=== PATIENT | male | born 1960 | race Caucasian/White ===

== ENCOUNTER → 2017-10-17 | Outpatient (CLI) | payer OTHER | LOC: FIMAGING 10:33 | PROVIDERS: ATTEND Neurological Surgery | DX: M47.12 Other spondylosis with myelopathy, cervical region (principal); M48.02 Spinal stenosis, cervical region; M50.222 Other cervical disc displacement at C5-C6 level; M50.223 Other cervical disc displacement at C6-C7 level ==

== ENCOUNTER 2017-11-15 11:18 | Observation (INO) | payer OTHER ==
[2017-11-15] MEDS ORDERED: SURGIFLO MATRIX KIT WITH THROMBIN 8 ML TP ONE ×2 (11:39→14:29)
[2017-11-15] MEDS ORDERED: BUPIVACAINE 0.25% 30 ML SDV ONE (11:40)
[2017-11-15] MEDS ORDERED: BACITRACIN 50,000 UNITS/10 ML SYR IRR ONE (11:40)
[2017-11-15] MEDS ORDERED: THROMBIN (BOVINE) 5,000 UNIT VIAL TP ONE (11:40)
[2017-11-15] MEDS ORDERED: EPINEPHrine 1 MG/ML INJ ONE (11:40)
[2017-11-15] MEDS ORDERED: GABAPENTIN 300 MG CAP PO ONE (11:44)
[2017-11-15] MEDS ORDERED: ACETAMINOPHEN 500 MG TAB PO ONE (11:44)
[2017-11-15] MEDS ORDERED: ceFAZolin 2 GM/DEXTROSE 100 ML IV ONE (11:44)
[2017-11-15] MEDS ORDERED: LIDOCAINE 1% 2 ML INJ ID PRN (11:48)
[2017-11-15] MEDS ORDERED: LR 1,000 ML IV ONE (11:48)
[2017-11-15] MEDS ORDERED: MIDAZOLAM 2 MG/2 ML VIAL IVP ONE (12:12)
--- NOTE | 2017-11-15 12:14 | PDANEPAE ---
ANE History of Present Illness cervical radiculopathy for ACDF ANE Past Medical History - Cardiovascular History Hx Hypertension: No Hx Arrhythmias: No Hx Chest Pain: No Hx Coronary Artery / Peripheral Vascular Disease: No Hx CHF / Valvular Disease: No Hx Palpitations: No Cardiovascular History Comment: PREV A-FIB ONE TIME EPISODE 2003. RBBB - Pulmonary History Hx COPD: No Hx Asthma/Reactive Airway Disease: No Hx Recent Upper Respiratory Infection: No Hx Oxygen in Use at Home: No Hx Sleep Apnea: No Sleep Apnea Screening Result - Last Documented: Negative - Neurologic History Hx Cerebrovascular Accident: No Hx Seizures: No Hx Dementia: No - Endocrine History Hx Diabetes: No Hypothyroid: No Hyperthyroid: No Obesity: no - Renal History Hx Renal Disorders: No - Liver History Hx Hepatic Disorders: No - Neurological & Psychiatric Hx Hx Neurological and Psychiatric Disorders: Yes Neurological / Psychiatric History Comment: ANXIETY - Cancer History Hx Cancer: No - Congenital Disorder History Hx Congenital Disorders: No - GI History Hx Gastrointestinal Disorders: Yes Gastrointestinal History Comment: HX OF COLON POLYPS - Other Health History Other Health History: FULL DENTURES. CERVICAL MYELOPATHY. RT ARM/SCAPULA NUMBNESS FINGERS - Chronic Pain History Chronic Pain: Yes (CERVICAL MYELOPATHY) - Surgical History Prior Surgeries: VEENA CATARACT,CORNEAL TRANSPLANT. RETINAL DETACHMENT,GLAUCOMA. DENTAL IMPLANTS ANE Review of Systems Review of systems is: negative Review of Systems: - Exercise capacity METS (RN): 6 METS ANE Patient History - Allergies Allergies/Adverse Reactions: No Known Allergies Allergy (Verified 11/07/17 14:48) - Home Medications Home medications: home medication list seen and reviewed Home Medications: FLUoxetine [Prozac 20 MG (*)] 40 mg PO HS 10/26/15 [Last Taken Unknown] QUEtiapine FUMARATE [Seroquel 25 mg (*)] 25 mg PO HS 10/26/15 [Last Taken Unknown] Rosuvastatin Calcium [Crestor 10mg (RX)] 10 mg PO HS 10/26/15 [Last Taken Unknown] Polymyxin B Sulfate/Tmp [Polytrim Opht Drops (*)] 1 drops RTEYE BID 11/07/17 [ Last Taken Unknown] prednisoLONE ACET 1% [Pred Forte 1% (*)] 1 drops RTEYE DAILY 11/07/17 [Last Taken Unknown] - Smoking Hx Smoking Status: Never smoked - Family Anes Hx Family Hx Anesthesia Complications: NEG ANE Labs/Vital Signs - Vital Signs Height: 185.42 cm Weight: 83.915 kg ANE Physical Exam - Airway Neck exam: FROM Mallampati Score: Class 1 Mouth exam: dentures - Pulmonary Pulmonary: no respiratory distress - Cardiovascular Cardiovascular: regular rate and rhythym - ASA Status ASA Status: II ANE Anesthesia Plan Anesthesia Plan: general endotracheal anesthesia Lines/Monitors: additional IV Specialized Airway: video laryngoscope
[2017-11-15] MEDS ORDERED: fentaNYL 100 MCG/2 ML INJ ONE (12:17)
[2017-11-15] MEDS ORDERED: PROPOFOL/EMULSION 500 MG/50 ML BOTTLE IV ONE ×2 (12:17→14:06)
[2017-11-15] MEDS ORDERED: LIDOCAINE 2% 2 ML INJ ONE (12:26)
[2017-11-15] MEDS ORDERED: SUCCINYLCHOLINE CHLORIDE 200 MG/10 ML SYR IVP ONE (12:26)
[2017-11-15] MEDS ORDERED: ROCURONIUM 50 MG/5 ML VIAL ONE (12:27)
--- NOTE | 2017-11-15 12:33 | PDHPUP ---
History & Physical Update H&P update statement: This history and physical update is based on an assessment of the patient which was completed after admission or registration (within 24 hours), but prior to the surgery/procedure. H&P update: H&P reviewed & patient examined, no change in patient's condition since H&P completed
[2017-11-15] MEDS ORDERED: DEXAMETHASONE 4 MG/ML VIAL ONE ×2 (12:46)
[2017-11-15] MEDS ORDERED: PHENYLEPHRINE HCL 100 MCG/ML SYR ONE (13:22)
--- NOTE | 2017-11-15 14:16 | POSTANESTH ---
Post Anesthetic Evaluation Cardiovascular Status: Normal, Stable Respiratory Status: Normal, Stable Level of Consciousness/Mental Status: Can Participate in Eval, Alert and Oriented Pain Control: Adequate, Prn Tx Ordered Nausea/Vomiting Control: Adequate, Prn Tx Ordered Complications Possibly Related to Anesthesia: None Noted
[2017-11-15] MEDS ORDERED: METOCLOPRAMIDE 10 MG/2 ML VIAL IVP PRN (15:38)
[2017-11-15] MEDS ORDERED: HYDROmorphONE/DILAUDID 2 MG/ML INJ IVP PRN (15:38)
[2017-11-15] MEDS ORDERED: ALBUTEROL 3 ML DEYVIAL IH PRN (15:38)
[2017-11-15] MEDS ORDERED: PROMETHAZINE HCL 25 MG/ML INJ IVP PRN (15:38)
[2017-11-15] MEDS ORDERED: ONDANSETRON 4 MG/2 ML VIAL IVP PRN ×2 (15:38→16:01)
[2017-11-15] MEDS ORDERED: fentaNYL 100 MCG/2 ML INJ IVP PRN (15:38)
[2017-11-15] MEDS ORDERED: NALOXONE HCL 0.4 MG/ML INJ IVP PRN (15:38)
[2017-11-15] MEDS ORDERED: ACETAMINOPHEN 500 MG TAB PO PRN (15:38)
[2017-11-15] MEDS ORDERED: LABETALOL HCL 5 MG/ML 20 ML MDV IVP PRN (15:38)
[2017-11-15] MEDS ORDERED: LR 500 ML IV PRN (15:38)
[2017-11-15] MEDS ORDERED: DIAZEPAM 5 MG/ML 1 ML SYR IVP PRN (15:38)
[2017-11-15] MEDS ORDERED: oxyCODONE IR 5 MG TAB PO PRN ×2 (15:38→16:01)
[2017-11-15] MEDS ORDERED: MEPERIDINE 25 MG/0.5 ML AMP IVP PRN (15:38)
[2017-11-15] MEDS ORDERED: PHENYLEPHRINE HCL 100 MCG/ML SYR IVP PRN (15:38)
[2017-11-15] MEDS ORDERED: BISACODYL 10 MG SUPP PR PRN (16:01)
[2017-11-15] MEDS ORDERED: METHOCARBAMOL 750 MG TAB PO PRN (16:01)
[2017-11-15] MEDS ORDERED: diphenhydrAMINE 25 MG CAP PO PRN (16:01)
[2017-11-15] MEDS ORDERED: LACTULOSE 20 GM/30 ML UDCUP PO PRN (16:01)
[2017-11-15] MEDS ORDERED: ONDANSETRON DISINTEGRATING 4 MG TAB PO PRN (16:01)
[2017-11-15] MEDS ORDERED: MAGNESIUM HYDROXIDE 30 ML UDCUP PO PRN (16:01)
--- NOTE | 2017-11-15 16:12 | SOAPPROG ---
THOMAS Progress Note Assessment/Plan: Assessment: 57 yo M sp C3/4, 4/5 ACDF Plan: stable to 3N hard collar x-rays in am please call with neuro changes 11/15/17 16:09 Subjective: + neck pain, no arm pain Objective: Vital Signs Temp Pulse Resp BP Pulse Ox 36.6 C 78 12 155/90 H 99 11/15/17 12:19 11/15/17 12:19 11/15/17 12:19 11/15/17 12:19 11/15/17 12:19 somnolent PERRL, EOMI 5/5 + light touch ICD10 Worksheet Patient Problems: Problems Problem Status Onset Fusion of spine of cervical region Acute - ICD10 Problem Qualifiers (1) Fusion of spine of cervical region
[2017-11-15] MEDS ORDERED: NS 1,000 ML IV SCH (16:15)
--- NOTE | 2017-11-15 19:03 | GOP ---
DATE OF OPERATION: 11/15/2017 SURGEON: Darling Kirk DO NEUROSURGEON: Darling Kirk D.O. PREOPERATIVE DIAGNOSIS: Cervical spondylitic myelopathy. POSTOPERATIVE DIAGNOSIS: Cervical spondylitic myelopathy. PROCEDURE PERFORMED: FINDINGS: SPECIMENS: None. ESTIMATED BLOOD LOSS: 40 mL. INDICATIONS: This is a 57-year-old male with significant cord edema and some cord enhancement sugges tive of transverse myelitis with overlying stenosis who has pathologic motion in flexion and extensio n, indicating that he may actually be myelopathic from repeated cord contusion with myelomalacia who was offered ACDF at C3-4 and C4-5. He elected to move forward with surgery. DESCRIPTION OF PROCEDURE: The patient was identified, consented, sites were marked. Brought to the operating room, anesthetized under general endotracheal tube anesthesia. Interscapular roll was plac ed. Head was placed in neutral position in a Garcia quality control head. Shoulders were taped down. Pre positioning baselines were performed and were stable throughout the case and unchanged. A blunt need le was taped to the skin and the incision site was marked. He was prepped and draped in the usual st erile fashion. Incision was anesthetized with 0.5% Marcaine with epinephrine. Incision was made wit h a 10 blade. Hemostasis was obtained with bipolar cautery, dissecting through the platysma in a hor izontal fashion with Metzenbaum scissors. Using the handheld cautery, retracting the trachea and eso phagus medially coming along the medial border of the SCM. It was very difficult to palpate the oviedo tid, however, we were able to identify the avascular plane and retract the trachea and esophagus medi ally, the carotid laterally, measuring and placing a Shadow-Line retractor. After clearing the preve rtebral fascia with Kittners, we then placed a bayoneted 18-gauge spinal needle, took an x-ray, we we re at C4-5. We marked this level and then dissected with the Kittners, placing the Shadow -Line and then placed the Tinnie pins at C3 and C4, took an x-ray, verified we were in appropriate po sition. Placed the patient under distraction, brought in the microscope, using a high-speed drill, r emoved the disk and cartilaginous endplate from the superior and inferior endplates of the C3-4 disk space, opening the posterior longitudinal ligament with micro upgoing curette and then extended this with 1 Kerrison and then a 2 Koros and performed foraminotomies bilaterally until foraminal fat was i dentified. We then harvested autograft superiorly and inferiorly, measured a 12 x 14 x 9 mm LDR ROIC graft and packed it with and the patient's own bone, tamped it into place. Under x-ray, it was in appropriate position. Neuro monitoring remained stable. Removed the Tinnie pin superiorly and packed the hole with a Gelfoam bullet, tamped the long wing superiorly. With the 1 impactor, ve rified it was in the appropriate position. Cold welded with the 1 impactor, cold welded with the 2 i mpactor, placed the short wing inferiorly and tamped it into place. Took an x-ray, verified it was i n appropriate position. Cold welded with the 1 cold welded with the 2 inspected the graft and took a n x-ray, it was in good position, removed the Tinnie pin and the retractors down inferiorly and place d Tinnie pin in the C5 vertebral body, took an x-ray, verified with the appropriate position, placed the patient under distraction. Repeated the procedure using a high-speed drill to remove the disk an d cartilaginous endplate. Coming down the posterior longitudinal ligament, this level was the more s tenotic level. We opened with micro upgoing curette and opened the posterior longitudinal ligament a nd extended this opening with 1 Kerrison, then used the 2 Koros, superior and inferiorly to move the disk and osteophyte and out bilateral lateral foramen until generous foraminotomy was performed. We then harvested bone graft superiorly and inferiorly and measured another 12 x 14 x 9 mm graft and litzy led with DBX in the patient's bone and tamped it into place. Under x-ray, it was in good position, r emoved the Tinnie pin superiorly and packed the bone with the Gel-Foam bullet, placed the short wing superiorly, tamped into place with a 1, took an x-ray, verified it was in the appropriate position. Cold welded with the 1, cold welded with the 2 impactor, removed the Tinnie pin inferiorly, placed Ge lfoam bullet into that space, placed a long wing inferiorly, tamped it into place, verified it was in the appropriate position. Cold welded with the 1, cold welded with the 2 impactor and then took an x-ray with all application devices. Hardware was in good position. Neuro monitor remained stable. Copiously irrigated with gentamicin infused saline. Meticulous hemostasis obtained with bipolar and Floseal. Once we had meticulous hemostasis, removed the Shadow Line retractor, inspected the valentino o f the incision for any bleeding. We had meticulous hemostasis, filled the incision with fluid and in spected. Then, trocared to drain out inferiorly, placing the prevertebral space, inspecting the wall s all the way down on the way out with the retractors. We then closed the platysma with 2-0 Vicryl p op-offs, subcutaneous layer with 3-0 Vicryl pop-offs. The skin was closed with Steri-Strips. The dr simon was sutured in with a 2-0 Vicryl pop-off, placed to bulb suction. Patient tolerated procedure well, neuro monitoring remained stable. There were no complications. PROCEDURE PERFORMED: C3-4, C4-5 anterior cervical diskectomy and fusion with LDR ROIC 12 x 14 x 9 mm graft at C3-4 and 12 x 14 x 9 mm graft at C4-5, autograft, allograft, neuro monitoring mi croscope. ASSIST: Ellis Arnold PA-C. FLUIDS: 900 mL crystalloid. URINE OUTPUT: None. DRAINS: One DAVEY in the prevertebral space to bulb suction. COMPLICATIONS: None. /[id number]/MODL
[2017-11-15] MEDS ORDERED: FLUoxetine 20 MG CAP PO SCH (21:00)
[2017-11-15] MEDS ORDERED: ROSUVASTATIN CALCIUM 10 MG TAB PO SCH (21:00)
[2017-11-15] MEDS ORDERED: QUEtiapine FUMARATE 25 MG TAB PO SCH (21:00)
[2017-11-15] MEDS: FAMOTIDINE 20 MG TAB PO SCH (21:19)
[2017-11-15] MEDS: ceFAZolin 2 GM/DEXTROSE 100 ML IV SCH (21:19)
[2017-11-15] MEDS: SENNOSIDES/DOCUSATE SODIUM TAB PO SCH (21:20)
[2017-11-15] MEDS: POLYMYXIN B SULFATE/TMP 10 ML OPHT.BTL RTEYE SCH (22:18)
[2017-11-15] MEDS: POLYETHYLENE GLYCOL 3350 17 GM PKT PO SCH (22:26)
[2017-11-16] MEDS: ceFAZolin 2 GM/DEXTROSE 100 ML IV SCH (04:25)
[2017-11-16 04:59] LABS: PLATELET COUNT 197 10^3/uL (150-400)
[2017-11-16] MEDS: SENNOSIDES/DOCUSATE SODIUM TAB PO SCH (08:56)
[2017-11-16] MEDS: FAMOTIDINE 20 MG TAB PO SCH (08:56)
[2017-11-16] MEDS: POLYETHYLENE GLYCOL 3350 17 GM PKT PO SCH (08:56)
[2017-11-16] MEDS: POLYMYXIN B SULFATE/TMP 10 ML OPHT.BTL RTEYE SCH (08:59)
[2017-11-16] MEDS ORDERED: prednisoLONE ACET 1% 5 ML OPHT.BTL RTEYE SCH (09:00)
--- NOTE | 2017-11-16 09:18 | SOAPPROG ---
SOAP Progress Note Assessment/Plan: Assessment: 57 yo M POD #1 C3/4, 4/5 ACDF Plan: Neuro: stable and doing well overall PT/OT hard collar at all times x-rays today likely dc home later today please call with neuro changes patient seen by Dr Kirk this am 11/15/17 16:09 11/16/17 09:16 Subjective: some neck pain, no arm pain, no weakness, continued hand paresthesias. Objective: Vital Signs Temp Pulse Resp BP Pulse Ox 36.7 C 62 14 122/67 H 96 11/16/17 07:54 11/16/17 07:54 11/16/17 07:54 11/16/17 07:54 11/16/17 07:54 Laboratory Results 11/16/17 04:20 11/16/17 04:20 11/15/17 11/16/17 11/17/17 05:59 05:59 05:59 Intake Total 830 100 Output Total 1117 Balance -287 100 AAOx4, +FC PERRL, no facial droop 5/5 + light touch C/D/I ICD10 Worksheet Patient Problems: Problems Problem Status Onset Fusion of spine of cervical region Acute - ICD10 Problem Qualifiers (1) Fusion of spine of cervical region
--- NOTE | 2017-11-16 11:21 | GDS ---
ADMISSION DIAGNOSIS: Cervical degenerative joint disease, stenosis, instability, and myelopathy. DISCHARGE DIAGNOSIS: Status post C3-4, C4-5 anterior cervical diskectomy and fusion. HISTORY AND PHYSICAL: Please see admission history and physical. COURSE: The patient is a 57-year-old male who presented with neck pain, hand paresthesias, and weakn ess. He was found to have the cervical stenosis at C3-4 and C4-5 with evidence of translational list hesis on his flexion-extension films. He was taken to the operating room on 11/15/2018, where he und erwent a C3-4 and C4-5 anterior cervical diskectomy and fusion. There were no intraoperative complic ations. He was admitted to the floor for observation. On the floor, he was tolerating a regular t and his pain was controlled with p.o. pain medications. His postop x-rays were stable and showed g ood position of the instrumentation. He was discharged home in stable condition on 11/16/2017. Evelin ent was discharged with cervical fusion instructions and recommend he return for a followup appointme nt with Dr. Kirk in 2 weeks. /[id number]/MODL
[2017-11-16 12:17] VITALS: BP 128/81
--- NOTE | 2017-11-16 14:22 | ASMTLACE ---
LACE Length of stay for Answers: 2 days current admission Acuity / Level of Answers: Yes Care: Did the patient have an inpatient admission? Comorbidities - select Answers: Opioid dependence all that apply / Chronic pain # of Emergency department Answers: 0 visits in the last 6 months Social determinants Answers: Mental health diagnosis (anxiety, depression, pers onality disorders, etc.) Score: 12 Date Signed: 11/16/2017 02:21 PM Electronically Signed By:ELIAS Caldwell
--- NOTE | 2017-11-16 14:24 | ASMTCMCOM ---
CM Note CM Note Notes: Pt s/p planned cervical diskectomy and fusion. PT rec home/HHC, pt declines HHC. Pt medically stable for d/c home with . Date Signed: 11/16/2017 02:23 PM Electronically Signed By:ELIAS Caldwell
[2017-11-18] MEDS ORDERED: ENOXAPARIN 40 MG/0.4 ML SYR SC SCH (09:00)
== END 2017-11-16 13:51 | disposition home or self-care (01) ==
LOC: INTOOBSV 11:18 → F3N 11:18
PROVIDERS: ADMIT Neurological Surgery; ATTEND Neurological Surgery
DX: M47.12 Other spondylosis with myelopathy, cervical region (principal)
CPT/HCPCS: 22551; 22552; 72040; 76001; 97161; 97165; 97530; G0378; C1713; J0171; J0330; J0690; J1100; J2250; J2370; J2704; J3010

== ENCOUNTER → 2018-05-15 | Outpatient (CLI) | payer OTHER | LOC: FIMAGING 17:30 | PROVIDERS: ATTEND Physician Assistant Surgical | DX: Z98.1 Arthrodesis status (principal); M50.30 Other cervical disc degeneration, unspecified cervical region ==